=== PATIENT | male | born 1955 | race Caucasian/White ===

== ENCOUNTER → 2020-01-17 | Outpatient (RCR) | payer OTHER ==
[~2020-01-17] MED LIST: BENAZEPRIL HCL10 MG PO
== END ==
LOC: PT 01-04 17:00
PROVIDERS: ATTEND Specialist
DX: M75.02 Adhesive capsulitis of left shoulder (principal); M75.01 Adhesive capsulitis of right shoulder; M75.101 Unspecified rotator cuff tear or rupture of right shoulder, not specified as traumatic

== ENCOUNTER → 2020-02-16 | Outpatient (RCR) | payer OTHER | LOC: PT 01-19 17:04 | PROVIDERS: ATTEND Specialist | DX: M75.02 Adhesive capsulitis of left shoulder (principal); M75.01 Adhesive capsulitis of right shoulder; M75.101 Unspecified rotator cuff tear or rupture of right shoulder, not specified as traumatic | CPT/HCPCS: 97139 ==

== ENCOUNTER 2020-03-17 14:59 | Outpatient (RCR) | payer OTHER | END 2020-03-18 | LOC: PT 14:59 | PROVIDERS: ATTEND Specialist | DX: M75.02 Adhesive capsulitis of left shoulder (principal); M75.01 Adhesive capsulitis of right shoulder | CPT/HCPCS: 97139 ==

== ENCOUNTER 2020-03-31 15:00 | Outpatient (RCR) | payer OTHER | END 2020-04-17 | LOC: PT 15:00 | PROVIDERS: ATTEND Specialist | DX: M75.02 Adhesive capsulitis of left shoulder (principal); M75.01 Adhesive capsulitis of right shoulder | CPT/HCPCS: 97139 ==

== ENCOUNTER → 2020-05-03 | Day surgery (SDC) | payer OTHER ==
[~2020-05-03] MED LIST changes: +AMLODIPINE BESYL5 MG PO; +DEXAMETHASONE SOD PHOS INJ 4 MG/ML VIAL ONE; +EPINEPHRINE 1 MG/ML 30ML VIAL ONE; +FENTANYL CITRATE/PF 100MCG/2 ML INJ ONE; +KETOROLAC TROMETHAMINE 30 MG/ML VIAL ONE; +LIDOCAINE HCL 2% LOCAL 20 ML VIAL ONE; +MIDAZOLAM HCL 2 MG/2 ML VIAL ONE; +ONDANSETRON HCL INJ 2MG/ML 2ML 2 MG/ML VIAL ONE; +PROPOFOL IV EMULSION 10 MG/ML 20 ML VIAL ONE; +ROPIVACAINE 0.5% 5 MG/ML 30 ML SDV ONE
[2020-05-03] MEDS: CEFAZOLIN SOD 1 GM/NS 50ML 100 ML IV ONE (10:14)
[2020-05-03 15:15] VITALS: BP 113/63
== END | disposition home or self-care (01) ==
LOC: OR 08:38
PROVIDERS: ATTEND Specialist
DX: M75.111 Incomplete rotator cuff tear or rupture of right shoulder, not specified as traumatic (principal); M75.01 Adhesive capsulitis of right shoulder; M65.811 Other synovitis and tenosynovitis, right shoulder; S46.092A Other injury of muscle(s) and tendon(s) of the rotator cuff of left shoulder, initial encounter; M75.02 Adhesive capsulitis of left shoulder; G47.33 Obstructive sleep apnea (adult) (pediatric); I49.8 Other specified cardiac arrhythmias; I10 Essential (primary) hypertension; F17.210 Nicotine dependence, cigarettes, uncomplicated; Z85.46 Personal history of malignant neoplasm of prostate; Z01.810 Encounter for preprocedural cardiovascular examination; Z01.812 Encounter for preprocedural laboratory examination; Z20.828 Contact with and (suspected) exposure to other viral communicable diseases; Z85.47 Personal history of malignant neoplasm of testis
CPT/HCPCS: 93005; C1713; J0690; J1100; J1885; J2001; J2250; J2405; J2795; J3010; U0002

== ENCOUNTER 2020-08-15 16:00 | Outpatient (RCR) | payer OTHER ==
[~2020-08-15 16:00] MED LIST changes: -DEXAMETHASONE SOD PHOS INJ 4 MG/ML VIAL ONE; -EPINEPHRINE 1 MG/ML 30ML VIAL ONE; -FENTANYL CITRATE/PF 100MCG/2 ML INJ ONE; -KETOROLAC TROMETHAMINE 30 MG/ML VIAL ONE; -LIDOCAINE HCL 2% LOCAL 20 ML VIAL ONE; -MIDAZOLAM HCL 2 MG/2 ML VIAL ONE; -ONDANSETRON HCL INJ 2MG/ML 2ML 2 MG/ML VIAL ONE; -PROPOFOL IV EMULSION 10 MG/ML 20 ML VIAL ONE; -ROPIVACAINE 0.5% 5 MG/ML 30 ML SDV ONE
== END 2020-08-16 ==
LOC: OT 16:00
PROVIDERS: ATTEND Specialist
DX: Z47.89 Encounter for other orthopedic aftercare (principal); M75.111 Incomplete rotator cuff tear or rupture of right shoulder, not specified as traumatic

== ENCOUNTER 2020-09-14 16:00 | Outpatient (RCR) | payer OTHER | END 2020-09-15 | LOC: OT 16:00 | PROVIDERS: ATTEND Specialist | DX: M75.111 Incomplete rotator cuff tear or rupture of right shoulder, not specified as traumatic (principal); Z47.89 Encounter for other orthopedic aftercare ==

== ENCOUNTER 2020-09-20 16:00 | Outpatient (RCR) | payer OTHER | END 2020-10-16 | LOC: OT 16:00 | PROVIDERS: ATTEND Specialist | DX: M75.101 Unspecified rotator cuff tear or rupture of right shoulder, not specified as traumatic (principal) ==